=== PATIENT | female | born 1975 | race Hispanic/Latino ===

== ENCOUNTER 2017-06-06 21:29 | Emergency (ER) | payer MEDICARE, MEDICAID ==
[2017-06-06 21:29] VITALS: BMI 45.5
[2017-06-06 21:55] VITALS: BP 100/64; PULSE 107; RESP 20; TEMP 97.8; O2SAT 95
--- NOTE | 2017-06-06 23:22 | C.PDOC ---
History Of Present Illness 42 year old female presents to the ED for evaluation of right knee pain which began 3 days ago. Patient has not taken any medicine for her pain. She denies recent falls, direct injury/trauma to the site, and extremity numbness/ weakness. (Teresa Redd) History Per: Patient History/Exam Limitations: no limitations Onset/Duration Of Symptoms: Days (3) Current Symptoms Are (Timing): Still Present Additional History Per: Patient - Knee Description Of Injury: denies: Fell, Struck With Object, Struck Against Object Time Seen by Provider: 06/06/17 22:57 Chief Complaint (Nursing): Lower Extremity Problem/Injury Past Medical History Reviewed: Historical Data, Nursing Documentation, Vital Signs - Medical History PMH: Arthritis, Asthma, Bronchitis, Depression, Migraine Denies: Diabetes, Hepatitis, HIV, HTN, Seizures, Sexually Transmitted Disease Surgical History: No Surg Hx Family History: States: Hypertension - Social History Hx Tobacco Use: No Hx Alcohol Use: Yes Hx Substance Use: No - Immunization History Hx Tetanus Toxoid Vaccination: No Hx Influenza Vaccination: No Hx Pneumococcal Vaccination: No Vital Signs: Last Vital Signs Temp 97.8 F 06/06/17 21:48 Pulse 107 H 06/06/17 21:48 Resp 20 06/06/17 23:27 BP 100/64 06/06/17 21:48 Pulse Ox 95 06/07/17 04:02 - [facility] Procedures CLOSURE SKIN & SUBCUTANEOUS NEC (04/19/14) GROUP PSYCHOTHERAPY (12/10/15) INDIVIDUAL PSYCHOTHERAPY, SUPPORTIVE (12/10/15) INJECT/INFUSE NEC (08/08/13) PRESSURE DRESSING APPLIC (03/07/13) Review Of Systems Musculoskeletal: Positive for: Other (right knee pain. no trauma/injury ) Neurological: Negative for: Weakness, Numbness Physical Exam - Physical Exam Appears: Non-toxic, No Acute Distress Skin: Normal Color, Warm, Dry, No Ecchymosis, No Other (erythema ) Extremity: Normal ROM (right knee ), No Tenderness, Capillary Refill (less than 2 seconds ), No Deformity, No Swelling Neurological/Psych: Normal Speech, Normal Cognition, Normal Sensation Gait: Steady ED Course And Treatment O2 Sat by Pulse Oximetry: 95 (on RA) Pulse Ox Interpretation: Normal Progress Note: Motrin PO administered. On reassessment, patient is resting comfortably and is showing no signs of distress. Patient is ambulatory and active in the ED with a steady gait and is stable for discharge. She is advised to follow up with her PMD within 1-2 days for further evaluation and/or return to the ED if symptoms persist or worsen. Reassessment Condition: Improved Disposition Counseled Patient/Family Regarding: Need For Followup, Rx Given - Disposition Disposition Time: 23:17 - Disposition Disposition: HOME/ ROUTINE Condition: STABLE Additional Instructions: Please follow up with PMD Use knee brace Return to ER if worse Prescriptions: Ibuprofen [Motrin] 600 mg PO Q6H #14 tab Instructions: Knee Sprain (DC) Forms: [employer] (Faroese) - Clinical Impression Clinical Impression: Knee pain, right - PA / NECKTIE STITCHER / Resident Statement MD/DO has reviewed & agrees with the documentation as recorded. - Scribe Statement The provider has reviewed the documentation as recorded by the Scribe (Celsa Hernandez) - Scribe Statement All medical record entries made by the Scribe were at my direction and personally dictated by me. I have reviewed the chart and agree that the record accurately reflects my personal performance of the history, physical exam, medical decision making, and the department course for this patient. I have also personally directed, reviewed, and agree with the discharge instructions and disposition. (Teresa Redd)
== END 2017-06-06 23:28 | disposition home or self-care (01) ==
LOC: C.ER 21:29
DX: M25.561 Pain in right knee (principal)